=== PATIENT | female | born 1990 | race Caucasian/White ===

== ENCOUNTER 2021-11-22 05:15 | Inpatient (IN) | payer BC ==
[2021-11-22] MEDS ORDERED: Sodium Chloride 0.9% 10 ML Syringe FLUSH PRN (05:44)
[2021-11-22] MEDS ORDERED: Citric Acid/Sodium Citrate Solution 30 ML Cup PO ONE (05:44)
[2021-11-22] MEDS ORDERED: Sodium Chloride 0.9% 2.5 ML Syringe FLUSH PRN (05:44)
[2021-11-22] MEDS ORDERED: ceFAZolin 2 GM in Premix Bag 1 BAG IV ONE (05:44)
[2021-11-22] MEDS ORDERED: Sodium Chloride 0.9% 20 ML SDV IV PRN (05:44)
[2021-11-22] MEDS: Lactated Ringers 1,000 ML IV SCH ×2 (05:45→06:40)
[2021-11-22] MEDS ORDERED: Oxytocin/0.9 % Sodium Chloride 30 UNIT/500 ML BAG IV SCH ×2 (05:45→09:15)
[2021-11-22] MEDS ORDERED: Ropivacaine 0.5% 5 MG/ML 30 ML SDV ONE (07:14)
[2021-11-22] MEDS ORDERED: Ondansetron 4 MG/2 ML SDV ONE ×2 (07:15)
[2021-11-22] MEDS ORDERED: fentaNYL 100 MCG/2 ML SDV ONE (07:15)
[2021-11-22] MEDS ORDERED: Lidocaine 2% 100 MG/5 ML Syringe ONE (07:15)
[2021-11-22] MEDS ORDERED: Oxytocin 10 Units/1 ML SDV ONE ×3 (07:15)
[2021-11-22] MEDS ORDERED: Morphine PF 10 MG/10 ML SDV ONE (07:15)
[2021-11-22] MEDS ORDERED: Albuterol 0.083% 2.5 MG/3 ML Neb Soln NEB PRN (07:34)
[2021-11-22] MEDS ORDERED: Acetaminophen/oxyCODONE 325-5 MG Tab PO PRN ×3 (07:34→09:04)
[2021-11-22] MEDS ORDERED: HYDROmorphone 1 MG/ML Syringe IVPUSH PRN (07:34)
[2021-11-22] MEDS ORDERED: fentaNYL 100 MCG/2 ML SDV IVPUSH PRN ×2 (07:34)
[2021-11-22] MEDS ORDERED: Ondansetron 4 MG/2 ML SDV IVPUSH PRN ×3 (07:34→09:04)
[2021-11-22] MEDS ORDERED: Nalbuphine 10 MG/1 ML Vial IVPUSH PRN (07:34)
[2021-11-22] MEDS ORDERED: diphenhydrAMINE 50 MG/ML SDV IVPUSH PRN ×2 (07:34→09:04)
[2021-11-22] MEDS ORDERED: Morphine 2 MG/ML SYRINGE IVPUSH PRN (07:34)
[2021-11-22] MEDS ORDERED: Naloxone 0.4 MG/ML SDV IVPUSH PRN (07:34)
[2021-11-22] MEDS ORDERED: Metoclopramide 10 MG/2 ML SDV IVPUSH PRN (07:34)
[2021-11-22] MEDS ORDERED: ceFAZolin 1 GM Vial ONE ×2 (07:37)
[2021-11-22] MEDS ORDERED: Dexamethasone 4 MG/ML 5 ML MDV ONE (08:49)
[2021-11-22] MEDS ORDERED: Lanolin 100% Cream 7 GM Tube TOP PRN (09:04)
[2021-11-22] MEDS ORDERED: Bisacodyl 10 MG Supp RECTAL PRN (09:04)
[2021-11-22] MEDS ORDERED: Albuterol 8 GM Inhaler INH PRN (09:07)
[2021-11-22] MEDS ORDERED: Lactated Ringers 1,000 ML IV SCH (09:15)
[2021-11-22] MEDS: Ketorolac 30 MG/ML SDV IVPUSH SCH ×3 (10:54→21:03)
[2021-11-22] MEDS: Docusate Sodium 100 MG Cap PO SCH (21:03)
[2021-11-23] MEDS ORDERED: Pantoprazole 40 MG Tab.CR PO ONE (01:00)
[2021-11-23] MEDS: Ketorolac 30 MG/ML SDV IVPUSH SCH ×2 (02:47→09:56)
[2021-11-23] MEDS: Levothyroxine 150 MCG Tab PO SCH (07:53)
[2021-11-23] MEDS: Docusate Sodium 100 MG Cap PO SCH ×2 (10:05→22:06)
[2021-11-23] MEDS: Ibuprofen 800 MG Tab PO PRN (16:27)
[2021-11-24] MEDS: Ibuprofen 800 MG Tab PO PRN ×2 (04:03→12:22)
[2021-11-24] MEDS: Levothyroxine 150 MCG Tab PO SCH (08:15)
[2021-11-24] MEDS: Docusate Sodium 100 MG Cap PO SCH (10:48)
== END 2021-11-24 14:25 | disposition home or self-care (01) | DRG 540 ==
LOC: MW.OB 05:15
PROVIDERS: ADMIT Obstetrics & Gynecology; ATTEND Obstetrics & Gynecology
PROC: 10D00Z1 Extraction of Products of Conception, Low, Open Approach (ICD-10-PCS; principal; 2021-11-22)
DX: O34.211 Maternal care for low transverse scar from previous cesarean delivery (principal); Z37.0 Single live birth; O99.214 Obesity complicating childbirth; O99.284 Endocrine, nutritional and metabolic diseases complicating childbirth; E03.9 Hypothyroidism, unspecified; O99.52 Diseases of the respiratory system complicating childbirth; J45.909 Unspecified asthma, uncomplicated; Z79.899 Other long term (current) drug therapy; Z3A.39 39 weeks gestation of pregnancy
CPT/HCPCS: 36415; 51702; 59025; 64488; 85014; 85018; 85027; 86592; 86850; 86900; 86901; A9270-GY; J0690; J1100; J1200; J1790; J1885; J2274; J2300; J2370; J2405; J2590; J2795; J3010; J7120

== ENCOUNTER 2022-12-22 23:13 | Emergency (ER) | payer BC ==
[2022-12-22] MEDS ORDERED: Sodium Chloride 0.9% 10 ML Syringe FLUSH PRN (23:38)
[2022-12-22] MEDS ORDERED: Ketorolac 30 MG/ML SDV IVPUSH ONE (23:38)
[2022-12-22] MEDS ORDERED: Ondansetron 4 MG/2 ML SDV IVPUSH ONE (23:38)
[2022-12-22] MEDS ORDERED: Sodium Chloride 0.9% 2.5 ML Syringe FLUSH PRN (23:38)
[2022-12-22] MEDS ORDERED: Lactated Ringers 1,000 ML IV ONE (23:39)
[2022-12-23 00:22] LABS: CARBON DIOXIDE,CO2 21.1 mmol/L (21.0-32.0)
[2022-12-23 00:58] LABS: CORONAVIRUS COVID-19 NAA NEGATIVE (NEGATIVE); INFLUENZA A NAA NEGATIVE (NEGATIVE); INFLUENZA B NAA NEGATIVE (NEGATIVE); RESPIRATORY SYNCYTIAL VIR NAA NEGATIVE (NEGATIVE)
== END 2022-12-23 01:25 | disposition home or self-care (01) ==
LOC: MW.ED 23:13
DX: A08.4 Viral intestinal infection, unspecified (principal); E03.9 Hypothyroidism, unspecified; E66.9 Obesity, unspecified; Z68.35 Body mass index [BMI] 35.0-35.9, adult; Z79.899 Other long term (current) drug therapy; Z20.822 Contact with and (suspected) exposure to COVID-19
CPT/HCPCS: 0241U; 36415; 80053; 83690; 85025; 96361; 96374; 96375; 99284; J1885; J2405; J7120; 99283

== ENCOUNTER 2023-01-26 18:56 | Emergency (ER) | payer BC ==
[2023-01-26] MEDS ORDERED: Albuterol/Ipratropium 3.0-0.5 MG/3 ML Neb Soln NEB ONE (19:54)
[2023-01-26] MEDS ORDERED: Ketorolac 30 MG/ML SDV IVPUSH ONE (19:54)
[2023-01-26] MEDS ORDERED: Sodium Chloride 0.9% 1,000 ML IV ONE (19:54)
[2023-01-26] MEDS ORDERED: Ondansetron 4 MG/2 ML SDV IVPUSH ONE (19:54)
[2023-01-26] MEDS ORDERED: LORazepam 2 MG/ML SDV IVPUSH ONE (19:55)
[2023-01-26] MEDS ORDERED: methylPREDNISolone Sodium Succinate 125 MG/2 ML SDV IVPUSH ONE (19:55)
[2023-01-26 20:30] LABS: CORONAVIRUS COVID-19 NAA NEGATIVE (NEGATIVE); INFLUENZA A NAA NEGATIVE (NEGATIVE); INFLUENZA B NAA NEGATIVE (NEGATIVE); RESPIRATORY SYNCYTIAL VIR NAA NEGATIVE (NEGATIVE)
[2023-01-26 20:38] LABS: CARBON DIOXIDE,CO2 25.4 mmol/L (21.0-32.0); POTASSIUM,K 3.8 mmol/L (3.5-5.1)
== END 2023-01-26 21:20 | disposition home or self-care (01) ==
LOC: MW.ED 18:56
DX: J20.9 Acute bronchitis, unspecified (principal); E03.9 Hypothyroidism, unspecified; E66.9 Obesity, unspecified; Z68.37 Body mass index [BMI] 37.0-37.9, adult; Z72.0 Tobacco use; Z79.899 Other long term (current) drug therapy; Z20.822 Contact with and (suspected) exposure to COVID-19
CPT/HCPCS: 0241U; 36415; 71045; 80053; 85025; 96361; 96374; 96375; 99285; J1885; J2060; J2405; J2930; J7030; 99283; J7620-GY

== ENCOUNTER 2024-06-13 18:53 | Emergency (ER) | payer BC | END 2024-06-13 21:00 | disposition left against medical advice (07) | LOC: MW.ED 18:53 | DX: Z53.21 Procedure and treatment not carried out due to patient leaving prior to being seen by health care provider (principal) ==